=== PATIENT | female | born 1990 | race Caucasian/White ===

== ENCOUNTER 2016-10-11 07:53 | Inpatient (IN) | payer BC ==
[~2016-10-11] VITALS: Ht 174 cm; Wt 87.3 kg
[2016-10-14] VITALS (11 sets, daily range): BP systolic 113–134; BP diastolic 7–86; PULSE 55–78; TEMP 98.1–98.6
[2016-10-14] MEDS ORDERED: PRENATAL PO (19:40)
[2016-10-14 20:16] LABS: BASO % 0.1 % (0.0-2.0); EOS % 0.1 % (0-4.0); GRAN # 7.5 (1.4-6.5); GRAN % 75.9 % (42.2-75.2); LYMPH # 1.8 (1.2-3.4); LYMPH % 18.5 % (20.0-51.0); MEAN CELL VOLUME 89 fl (80.0-100.0); MEAN CORPUSCULAR HGB CONC 34 g/dl (33.0-37.0); MEAN PLATELET VOLUME 9.6 fl (7.4-10.4); MONO # 0.5 (0.1-0.6); MONO % 5.1 % (1.7-9.3); PLATELET COUNT 171 K/mm3 (130-400); RED BLOOD COUNT 3.87 M/mm3 (4.10-5.30); REDCELL DISTRIBUTION WIDTH-CV 11.9 % (11.5-14.5); WHITE BLOOD COUNT 9.9 K/mm3 (4.8-10.8)
[2016-10-14 20:20] LABS: HEMATOCRIT 34.6 % (37.0-47.0); HEMOGLOBIN 11.8 g/dl (12.5-16.0); MEAN CORPUSCULAR HEMOGLOBIN 30 pg (27.0-31.0)
[2016-10-15] VITALS (67 sets, daily range): BP systolic 100–141; BP diastolic 56–85; PULSE 53–98; TEMP 97.2–98.6
[2016-10-16] VITALS (23 sets, daily range): BP systolic 107–140; BP diastolic 54–87; PULSE 74–102; TEMP 97.2–98.6
[2016-10-17 06:33] VITALS: BP 119/66; PULSE 81; TEMP 97.4
[2016-10-17 07:43] LABS: BASO % 0.2 % (0.0-2.0); EOS % 0.3 % (0-4.0); GRAN # 10.3 (1.4-6.5); GRAN % 82.9 % (42.2-75.2); LYMPH # 1.4 (1.2-3.4); LYMPH % 11.6 % (20.0-51.0); MEAN CELL VOLUME 93 fl (80.0-100.0); MEAN CORPUSCULAR HGB CONC 33 g/dl (33.0-37.0); MEAN PLATELET VOLUME 9.6 fl (7.4-10.4); MONO # 0.6 (0.1-0.6); MONO % 4.4 % (1.7-9.3); PLATELET COUNT 122 K/mm3 (130-400); RED BLOOD COUNT 3.09 M/mm3 (4.10-5.30); REDCELL DISTRIBUTION WIDTH-CV 12.4 % (11.5-14.5); WHITE BLOOD COUNT 12.4 K/mm3 (4.8-10.8)
[2016-10-17 08:09] LABS: HEMATOCRIT 28.6 % (37.0-47.0); HEMOGLOBIN 9.5 g/dl (12.5-16.0); MEAN CORPUSCULAR HEMOGLOBIN 31 pg (27.0-31.0)
[2016-10-17 16:00] VITALS: BP 121/76; PULSE 76; TEMP 97.9
[2016-10-17 21:45] VITALS: BP 121/74; PULSE 73; TEMP 97.6
[2016-10-18 07:00] VITALS: BP 110/72; PULSE 73; TEMP 97.7
[2016-10-18] MEDS ORDERED: FERROUS SU325 MG/TAB PO (09:20)
[2016-10-18] MEDS ORDERED: PERCOCET 325 MG1 TA2 PO (09:21)
[2016-10-18] MEDS ORDERED: IBU800 M1 PO (09:21)
== END 2016-10-18 11:25 | disposition home or self-care (01) | DRG 765 ==
LOC: OB 10-14 06:51 → LDR 10-14 18:55 → OB 10-16 04:10
PROVIDERS: Obstetrics & Gynecology
PROC: 10D00Z1 Extraction of Products of Conception, Low, Open Approach (ICD-10-PCS; principal; 2016-10-16)
PROC: 3E033VJ Introduction of Other Hormone into Peripheral Vein, Percutaneous Approach (ICD-10-PCS; 2016-10-16)
DX: O48.0 Post-term pregnancy (principal); D62 Acute posthemorrhagic anemia; O90.81 Anemia of the puerperium; O62.1 Secondary uterine inertia; O76 Abnormality in fetal heart rate and rhythm complicating labor and delivery; O34.83 Maternal care for other abnormalities of pelvic organs, third trimester; N83.8 Other noninflammatory disorders of ovary, fallopian tube and broad ligament; Z3A.41 41 weeks gestation of pregnancy; Z37.0 Single live birth
CPT/HCPCS: J0690; J2210; J2270; J2370; J2400; J2590; J2704; J7120

== ENCOUNTER 2019-01-30 06:54 | Inpatient (IN) | payer BC ==
[~2019-01-30] VITALS: Ht 172.8 cm; Wt 87.3 kg
[2019-01-30] VITALS (18 sets, daily range): BP systolic 97–121; BP diastolic 46–75; PULSE 59–78; TEMP 97.6–98.3
--- NOTE | 2019-01-30 06:45 | NUR ---
Pt arrives on unit ambulatory with spouse for repeat csection. Changed into a clean gown. EFM and toco applied. VSS. IV started in left forearm. Labs drawn. LR infusing. Consents signed. Admission assessment completed. Pt updated on POC. Safety reviewed. Bed locked in low position. Call light within reach. No questions or concerns at this time.
[~2019-01-30 06:54] MED LIST: FERROUS SU325 MG/TAB PO; IBU800 M1 PO; PERCOCET 325 MG1 TA2 PO; PRENATAL PO
[2019-01-30 08:11] LABS: BASO % 0.1 % (0.0-2.0); EOS % 0.4 % (0-4.0); GRAN # 5.5 (1.4-6.5); GRAN % 71.2 % (42.2-75.2); HEMOGLOBIN 11.3 g/dl (12.5-16.0); LYMPH # 1.7 (1.2-3.4); LYMPH % 22.4 % (20.0-51.0); MEAN CELL VOLUME 91 fl (80.0-100.0); MEAN CORPUSCULAR HEMOGLOBIN 30 pg (27.0-31.0); MEAN CORPUSCULAR HGB CONC 33 g/dl (33.0-37.0); MEAN PLATELET VOLUME 9.7 fl (7.4-10.4); MONO # 0.4 (0.1-0.6); MONO % 5.5 % (1.7-9.3); PLATELET COUNT 159 K/mm3 (130-400); RED BLOOD COUNT 3.77 M/mm3 (4.10-5.30); REDCELL DISTRIBUTION WIDTH-CV 12.2 % (11.5-14.5)
[2019-01-30 08:13] LABS: HEMATOCRIT 34.4 % (37.0-47.0)
--- NOTE | 2019-01-30 10:25 | NUR ---
Pt taken to room 222 via bed. Pt alert and sitting up infant. VSS, afebrile. Pericare done, new pads placed. at bedside.
--- NOTE | 2019-01-30 14:45 | NUR ---
Pt up to bathroom with assist. Tolerated very well. Doyle catheter removed. Pericare instructions given and new pads and gown on. Pt ambulates back to bed. Denies any pain.
[2019-01-31 04:00] VITALS: BP 120/69; PULSE 72; TEMP 98.2
[2019-01-31 07:30] VITALS: BP 106/75; PULSE 65; TEMP 97.4
[2019-01-31 15:35] VITALS: BP 90/57; PULSE 89; TEMP 98.4
--- NOTE | 2019-01-31 18:40 | NUR ---
Report recieved. Refused bedside report due to resting at this time.
[2019-01-31 20:00] VITALS: BP 111/70; PULSE 66; TEMP 98.1
[2019-02-01 08:15] VITALS: BP 107/68; PULSE 64; TEMP 97.5
[2019-02-01] MEDS ORDERED: IBU600 MG PO (11:37)
[2019-02-01] MEDS ORDERED: PERCOCET 325 MG1 TA2 PO (11:37)
--- NOTE | 2019-02-01 12:32 | NUR ---
Initial visit; Parents thanked for offering congratulations for the of their daughter. [employer] thanked family for choosing [facility].
== END 2019-02-01 12:45 | disposition home or self-care (01) | DRG 788 ==
LOC: OB 06:54 → LDR 13:23 → OB 02-01 12:45
PROVIDERS: ADMIT Obstetrics & Gynecology
PROC: 10D00Z1 Extraction of Products of Conception, Low, Open Approach (ICD-10-PCS; principal; 2019-01-30)
DX: O34.211 Maternal care for low transverse scar from previous cesarean delivery (principal); O99.344 Other mental disorders complicating childbirth; F41.9 Anxiety disorder, unspecified; O34.80 Maternal care for other abnormalities of pelvic organs, unspecified trimester; N83.8 Other noninflammatory disorders of ovary, fallopian tube and broad ligament; O69.81X0 Labor and delivery complicated by cord around neck, without compression, not applicable or unspecified; O99.62 Diseases of the digestive system complicating childbirth; K21.9 Gastro-esophageal reflux disease without esophagitis; Z3A.39 39 weeks gestation of pregnancy; Z37.0 Single live birth
CPT/HCPCS: J0690; J1885; J2270; J2405; J2590; J7120

== ENCOUNTER 2020-11-24 10:02 | Inpatient (IN) | payer BC ==
[2020-11-24] VITALS (21 sets, daily range): BP systolic 83–117; BP diastolic 42–81; PULSE 58–78; TEMP 96.6–98.1
[~2020-11-24] VITALS: Ht 172.7 cm; Wt 86.8 kg
[~2020-11-24 10:02] MED LIST changes: -MOTRIN 800800 MG/TAB PO; -NATURAL IRON65 MG
--- NOTE | 2020-11-24 11:30 | NUR ---
Presents to labor and delivery for repeat section. Assessment done, questions offered and answered.
--- NOTE | 2020-11-24 12:00 | NUR ---
Rests in bed, alert. heart rate 122 with accelerations noted and no decels.
[2020-11-24] MEDS ORDERED: NATURAL IRON65 MG (12:09)
--- NOTE | 2020-11-24 12:30 | NUR ---
Rests in bed, alert. heart tones at 120 with accelerations. 1247 Pepcid 20 mg iv given as ordered.
[2020-11-24 12:49] LABS: BASO % 0.1 % (0.0-2.0); EOS % 0.1 % (0-4.0); GRAN # 5.6 (1.4-6.5); GRAN % 77.8 % (42.2-75.2); HEMOGLOBIN 11.2 g/dl (12.5-16.0); LYMPH # 1.2 (1.2-3.4); LYMPH % 16.8 % (20.0-51.0); MEAN CELL VOLUME 94 fl (80.0-100.0); MEAN CORPUSCULAR HEMOGLOBIN 30 pg (27.0-31.0); MEAN CORPUSCULAR HGB CONC 32 g/dl (33.0-37.0); MEAN PLATELET VOLUME 9.6 fl (7.4-10.4); MONO # 0.3 (0.1-0.6); MONO % 4.8 % (1.7-9.3); PLATELET COUNT 151 K/mm3 (130-400); REDCELL DISTRIBUTION WIDTH-CV 12.7 % (11.5-14.5)
[2020-11-24 12:52] LABS: HEMATOCRIT 34.9 % (37.0-47.0)
--- NOTE | 2020-11-24 13:10 | NUR ---
1310-Patient ambulatory to OR with spouse and this RN.
--- NOTE | 2020-11-24 14:20 | NUR ---
1420-Patient to PACU via bed. Recieved report from ROLAN Gomez. Patient comfortable and dressing to abdomen C/D/I Fundal massage firm, joannaa WNL. Vivek to GUMARO. VSS, see PACU record. Remained with patient per recovery protocol.
--- NOTE | 2020-11-24 15:00 | NUR ---
1500-Patient to room via bed. VSS, unable to obtain oral temp or axillary temp above 96.0, Temporal 96.6. Bear hugger obtained and used on low setting. All other VSS, see reocvery record. Fundal massge remains firm and lochia WNL.
--- NOTE | 2020-11-24 16:00 | NUR ---
PT RESTING IN BED. AIR WARMING BLANKET WITH MULTIPLE BATH BLANKETS APPLIED. BP LOWER THAN UPON ADMIT BUT PT ASYMPTOMATIC WITH LOWER BP. UNABLE TO MOVE LEGS AND PATIENT VERY COMFORTABLE WITH FUNDAL MASSAGE. UNABLE TO OBTAIN PT TEMPERATURE WITH ORAL OR AXILLARY METHODS. SCANNED AT 96.6. LARA CATH PATENT WITH PALE YELLOW URINE. PT DRINKING LARGE AMOUNTS OF WATER.
--- NOTE | 2020-11-24 16:30 | NUR ---
LR INFUSION COMPLETED. IV TO INT AND FLUSES EASILY. HOB RAISED PER PATIENT REQUEST. STATES BEGINNING TO FEEL RIGHT LEG A LITTLE.
--- NOTE | 2020-11-24 17:00 | NUR ---
STILL UNBALE TO REGISTER ORAL OR AXILARY TEMP. SCANNED TEMP IS 97.1. PATIENT ORDERS DINNER.
--- NOTE | 2020-11-24 17:30 | NUR ---
PATIENT EATING DINNER. BP RETURNING TO NORMAL RANGE. DENIES FEELING TOO WARM WITH AIR WARMING BLANKET.
[2020-11-25] VITALS: BP 107/73; PULSE 58; TEMP 97.1
[2020-11-25 05:45] VITALS: BP 121/76; PULSE 64; TEMP 97.9
[2020-11-25 07:20] VITALS: BP 108/69; PULSE 60; TEMP 97.9
[2020-11-25 16:10] VITALS: BP 110/66; PULSE 64; TEMP 98.3
[2020-11-25 20:00] VITALS: BP 119/70; PULSE 63; TEMP 98.3
[2020-11-26 07:00] VITALS: BP 103/65; PULSE 72; TEMP 98.3
[2020-11-26] MEDS ORDERED: PERCOCET 325 MG1 TA2 PO (09:19)
[2020-11-26] MEDS ORDERED: MOTRIN 800800 MG/TAB PO (09:19)
== END 2020-11-26 10:50 | disposition home or self-care (01) | DRG 788 ==
LOC: OB 10:02
PROVIDERS: ADMIT Obstetrics & Gynecology
PROC: 10D00Z1 Extraction of Products of Conception, Low, Open Approach (ICD-10-PCS; principal; 2020-11-24)
DX: O34.211 Maternal care for low transverse scar from previous cesarean delivery (principal); Z3A.39 39 weeks gestation of pregnancy; Z37.0 Single live birth
CPT/HCPCS: J1100; J1885; J2370; J2405; J2590; J7120

== ENCOUNTER → 2020-11-24 | Outpatient (CLI) | payer BC ==
[~2020-11-24] MED LIST changes: +IBU600 MG PO; +MOTRIN 800800 MG/TAB PO; +NATURAL IRON65 MG
== END | disposition still patient (30) ==
LOC: ZCOL.LAB 11-21 10:03
DX: Z20.822 Contact with and (suspected) exposure to COVID-19 (principal)